=== PATIENT | female | born 1970 | race American Indian/Alaskan Native ===

== ENCOUNTER 2016-09-15 11:34 | Emergency (ER) | payer MEDICARE ==
[2016-09-15] MEDS ORDERED: VALIUM ONE (12:34)
[2016-09-15] MEDS ORDERED: ATIVAN IM PRN (12:38)
[2016-09-15] MEDS ORDERED: VALIUM IM ONE (12:38)
[2016-09-15 12:50] LABS: Basophils % (Auto) 1.2 % (0.0-1.8); Eosinophils % (Auto) 0.9 % (0.0-4.3); Hematocrit 38.4 % (30.3-42.9); Hemoglobin 12.7 gm/dl (10.1-14.3); Mean Corpuscular HGB Conc 33 % (30-34); Mean Corpuscular Hemoglobin 26 pg (28-32); Mean Corpuscular Volume 79 fl (79-97); Platelet Count 329 K/mm3 (140-440); Red Blood Count 4.84 M/mm3 (3.65-5.03); Red Cell Distribution Width 13.9 % (13.2-15.2); White Blood Count 8.3 K/mm3 (4.5-11.0)
[2016-09-15 13:04] LABS: Anion Gap 19 mmol/L; BUN/Creatinine Ratio 15.71; Blood Urea Nitrogen 11 mg/dL (7-17); Calcium 8.7 mg/dL (8.4-10.2); Carbon Dioxide 21 mmol/L (22-30); Chloride 99.9 mmol/L (98-107); Glucose 91 mg/dL (65-100); Potassium 3.4 mmol/L (3.6-5.0); Sodium 136 mmol/L (137-145)
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
[2016-09-15 18:07] LABS: Urine Drugs of Abuse Note Disclamer
[2016-09-15 18:59] LABS: Bilirubin,Urine NEG (Negative); Blood,Urine SM (Negative); Ketones,Urine 20 mg/dL (Negative); Leukocyte Esterase,Urine NEG (Negative); Mucus,Urine FEW /HPF; Nitrite,Urine NEG (Negative); Protein,Urine <15 mg/dL mg/dL (Negative)
[2016-09-16 11:10] VITALS: BP 132/78
== END 2016-09-16 11:12 ==
LOC: EEVIPCON 11:34 → ED 11:34
DX: F14.10 Cocaine abuse, uncomplicated (principal); F39 Unspecified mood [affective] disorder; I10 Essential (primary) hypertension; J45.909 Unspecified asthma, uncomplicated
CPT/HCPCS: 36415; 80048; 80307; 81001; 81025; 82550; 84702; 85025; 96372; 99285; G0480; J3360; 80320

== ENCOUNTER 2016-09-28 17:16 | Outpatient (CLI) | payer MEDICARE ==
--- NOTE | 2016-09-29 09:17 | XRay Report ---
RIGHT KNEE RADIOGRAPHS INDICATION: Right knee pain. COMPARISON: 03/20/2014. FINDINGS: AP and lateral right knee radiographs again partially image distal femoral medullary russel without evidence of loosening. Normal knee articulation. Small calcifications, approximately 1.2 cm in length along proximal MCL are slightly more prominent inferiorly. Small superior patellar enthesophyte. No suprapatellar effusion. CONCLUSION: No acute right knee radiographic abnormality with femoral medullary russel and Pelligrini Steida lesion again noted, as described. Please correlate. Thank you for the opportunity to participate in this patient's care.
== END 2016-09-28 17:17 | disposition home or self-care (01) ==
LOC: MRI 17:16 → XRAY 17:17
PROVIDERS: ATTEND Emergency Medicine
DX: M17.11 Unilateral primary osteoarthritis, right knee (principal); M25.861 Other specified joint disorders, right knee; M47.897 Other spondylosis, lumbosacral region; Z79.899 Other long term (current) drug therapy

== ENCOUNTER 2016-10-31 12:44 | Emergency (ER) | payer MEDICARE ==
[2016-10-31 13:13] VITALS: BP 130/89
--- NOTE | 2016-10-31 13:57 | XRay Report ---
Left knee 3 views: History: Knee pain after fall. Findings: The intramedullary russel at the femur is stable. Articular surfaces appears unremarkable. No fracture, dislocation or joint effusion. Calcification noted in the medial collateral ligament adjacent to the femur. Impression: No evidence of acute fracture.
[2016-10-31] MEDS ORDERED: BOOSTRIX IM ONE (15:18)
[2016-10-31] MEDS ORDERED: TYLENOL PO ONE (15:18)
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
[2016-10-31 15:39] LABS: Bilirubin,Urine NEG (Negative); Blood,Urine NEG (Negative); Ketones,Urine NEG (Negative); Leukocyte Esterase,Urine NEG (Negative); Mucus,Urine FEW /HPF; Nitrite,Urine NEG (Negative); Protein,Urine <15 mg/dL mg/dL (Negative); Urobilinogen,Urine < 2.0 mg/dL (<2.0)
== END 2016-10-31 16:26 | disposition home or self-care (01) ==
LOC: ED 12:44
DX: S80.02XA Contusion of left knee, initial encounter (principal); N76.0 Acute vaginitis; I10 Essential (primary) hypertension; J45.909 Unspecified asthma, uncomplicated; Z98.51 Tubal ligation status; Z90.89 Acquired absence of other organs; Z88.8 Allergy status to other drugs, medicaments and biological substances; W01.0XXA Fall on same level from slipping, tripping and stumbling without subsequent striking against object, initial encounter; Y93.89 Activity, other specified; Y99.8 Other external cause status; Y92.89 Other specified places as the place of occurrence of the external cause
CPT/HCPCS: 81001; 81025; 87086; 87210; 87591; 90471; 90715; 99284

== ENCOUNTER 2016-12-14 18:12 | Outpatient (CLI) | payer MEDICARE ==
--- NOTE | 2016-12-15 08:51 | Magnetic Resonance Report ---
MRI scan of lumbar spine: History: Low back pain. Technique: Multiplanar, multisequence images were obtained without contrast injection. Findings: Conus medullaris terminates at L1 with normal signal intensity. Normal lumbar lordosis. Normal. Paravertebral soft tissue. Normal height and signal intensity of vertebral bodies. Decrease in signal intensity and height of L1-L2, L4-L5 and L5-S1. Below this level is considered L5-S1. L1-L2. No neuroforamina or central canal spinal stenosis. Degenerative facet joints. Degenerative disc. L2-L3. Normal. L3-L4. Mild bilateral neuroforaminal narrowing secondary to diffuse disc bulge. Degenerative facet joints. No central canal spinal stenosis. L4-L5. Severe bilateral neural foramina narrowing and mild central canal spinal stenosis secondary to degenerative diffuse disc bulge and degenerative facet joints with mild ligamenta flava hypertrophy. L5-S1. Severe bilateral neural foramina narrowing secondary to degenerative diffuse disc bulge and degenerative facet joints. No central canal spinal stenosis. No focal protrusion, extrusion or sequestration of disc. Impression: Multilevel bilateral neural foramina narrowing. Central canal spinal stenosis L4-L5. Degenerative facet joints and degenerative disc.
== END 2016-12-14 18:13 | disposition home or self-care (01) ==
LOC: MRI 18:12
PROVIDERS: ATTEND Emergency Medicine
DX: M48.06 Spinal stenosis, lumbar region (principal); M17.11 Unilateral primary osteoarthritis, right knee; M47.897 Other spondylosis, lumbosacral region; M51.36 Other intervertebral disc degeneration, lumbar region; M40.46 Postural lordosis, lumbar region; M24.28 Disorder of ligament, vertebrae; I10 Essential (primary) hypertension; J45.909 Unspecified asthma, uncomplicated; Z79.899 Other long term (current) drug therapy
CPT/HCPCS: 72148

== ENCOUNTER 2017-02-16 09:56 | Emergency (ER) | payer MEDICARE ==
[2017-02-16 10:40] LABS: Anion Gap 15 mmol/L; BUN/Creatinine Ratio 7.14; Blood Urea Nitrogen 5 mg/dL (7-17); Calcium 8.4 mg/dL (8.4-10.2); Carbon Dioxide 26 mmol/L (22-30); Chloride 106.5 mmol/L (98-107); Glucose 92 mg/dL (65-100); Potassium 4.3 mmol/L (3.6-5.0); Sodium 143 mmol/L (137-145)
[2017-02-16 10:41] LABS: Basophils % (Auto) 1.1 % (0.0-1.8); Eosinophils % (Auto) 1.6 % (0.0-4.3); Hematocrit 36.6 % (30.3-42.9); Hemoglobin 11.7 gm/dl (10.1-14.3); Mean Corpuscular HGB Conc 32 % (30-34); Mean Corpuscular Volume 79 fl (79-97); Platelet Count 296 K/mm3 (140-440); Red Blood Count 4.62 M/mm3 (3.65-5.03); Red Cell Distribution Width 15.4 % (13.2-15.2); White Blood Count 8.1 K/mm3 (4.5-11.0)
[2017-02-16 10:46] LABS: Mean Corpuscular Hemoglobin 25 pg (28-32)
--- NOTE | 2017-02-16 11:01 | XRay Report ---
CHEST 2 VIEWS INDICATION: Shortness of breath. COMPARISON: None similar. FINDINGS: PA and lateral chest radiographs suggest slight cardiomegaly. Normal mediastinal and hilar contours. Clear lungs. Intact bones. CONCLUSION: Slight cardiomegaly. Thank you for the opportunity to participate in this patient's care.
[2017-02-16] MEDS ORDERED: PEPCID IV ONE (12:36)
[2017-02-16] MEDS ORDERED: MORPHINE IV ONE (12:36)
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
[2017-02-16] MEDS ORDERED: MORPHINE ONE (13:28)
[2017-02-16 16:09] VITALS: BP 130/88
== END 2017-02-16 16:18 | disposition home or self-care (01) ==
LOC: ED 09:56
DX: T78.3XXA Angioneurotic edema, initial encounter (principal); I10 Essential (primary) hypertension; T78.40XA Allergy, unspecified, initial encounter; F20.0 Paranoid schizophrenia; F31.9 Bipolar disorder, unspecified; F41.9 Anxiety disorder, unspecified; J45.909 Unspecified asthma, uncomplicated; F12.10 Cannabis abuse, uncomplicated
CPT/HCPCS: 36415; 71020; 80048; 84484; 85025; 93005; 93010; 96374; 96375; 99284; J2270; J2930

== ENCOUNTER 2017-03-26 21:33 | Emergency (ER) | payer MEDICARE ==
[2017-03-26 23:17] LABS: Basophils % (Auto) 0.9 % (0.0-1.8); Eosinophils % (Auto) 1.3 % (0.0-4.3); Hematocrit 40.3 % (30.3-42.9); Hemoglobin 12.9 gm/dl (10.1-14.3); Mean Corpuscular HGB Conc 32 % (30-34); Mean Corpuscular Volume 79 fl (79-97); Platelet Count 333 K/mm3 (140-440); Red Blood Count 5.13 M/mm3 (3.65-5.03); Red Cell Distribution Width 15.8 % (13.2-15.2); White Blood Count 8.5 K/mm3 (4.5-11.0)
[2017-03-26 23:20] LABS: Mean Corpuscular Hemoglobin 25 pg (28-32)
[2017-03-26 23:39] LABS: Alanine Aminotransferase 30 units/L (7-56); Albumin/Globulin Ratio 1.3 %; Alkaline Phosphatase 52 units/L (35-129); Anion Gap 19 mmol/L; BUN/Creatinine Ratio 14; Blood Urea Nitrogen 10 mg/dL (7-17); Calcium 9.2 mg/dL (8.4-10.2); Carbon Dioxide 24 mmol/L (22-30); Chloride 101.6 mmol/L (98-107); Glucose 102 mg/dL (65-100); Lipase 47 units/L (13-60); Potassium 3.4 mmol/L (3.6-5.0); Sodium 141 mmol/L (137-145)
[2017-03-27 00:17] LABS: Urine Drugs of Abuse Note Disclamer
[2017-03-27 00:49] LABS: Bilirubin,Urine SM (Negative); Blood,Urine SM (Negative); Ketones,Urine 20 mg/dL (Negative); Leukocyte Esterase,Urine TR (Negative); Mucus,Urine 3+ /HPF; Nitrite,Urine NEG (Negative)
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
[2017-03-27] MEDS: K-DUR PO ONE (14:10)
[2017-03-27] MEDS: MACROBID PO SCH (14:10)
[2017-03-27 17:54] VITALS: BP 127/71
== END 2017-03-27 18:29 ==
LOC: ED 21:33
DX: R45.851 Suicidal ideations (principal); F19.10 Other psychoactive substance abuse, uncomplicated; I10 Essential (primary) hypertension; J45.909 Unspecified asthma, uncomplicated; Z87.891 Personal history of nicotine dependence; Y08.89XA Assault by other specified means, initial encounter
CPT/HCPCS: 36415; 80053; 80307; 81001; 83690; 84703; 85025; 99284; G0480; 80320

== ENCOUNTER 2017-11-22 13:23 | Emergency (ER) | payer MEDICARE, OTHER ==
[2017-11-22 14:20] LABS: Basophils # (Auto) 0.1 K/mm3 (0.0-0.1); Basophils % (Auto) 0.9 % (0.0-1.8); Eosinophils # (Auto) 0.1 K/mm3 (0.0-0.4); Hematocrit 39.8 % (30.3-42.9); Lymphocytes # (Auto) 3.4 K/mm3 (1.2-5.4); Lymphocytes % (Auto) 40.7 % (13.4-35.0); Mean Corpuscular HGB Conc 33 % (30-34); Mean Corpuscular Hemoglobin 26 pg (28-32); Mean Corpuscular Volume 80 fl (79-97); Monocytes # (Auto) 0.9 K/mm3 (0.0-0.8); Monocytes % (Auto) 10.4 % (0.0-7.3); Platelet Count 319 K/mm3 (140-440); Red Blood Count 4.98 M/mm3 (3.65-5.03); Red Cell Distribution Width 15.1 % (13.2-15.2)
[2017-11-22 14:46] LABS: Alanine Aminotransferase 23 units/L (7-56); Albumin 4.4 g/dL (3.9-5); BUN/Creatinine Ratio 12; Blood Urea Nitrogen 11 mg/dL (7-17); Calcium 9.1 mg/dL (8.4-10.2); Hemolysis Index 3
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
[2017-11-22] MEDS ORDERED: MORPHINE IV ONE (17:58)
[2017-11-22] MEDS ORDERED: VANCOMYCIN PHARMACY TO DOSE IV SCH (18:00)
[2017-11-22] MEDS ORDERED: VANCOMYCIN/NS 1 GM/250 ML 1 GM/250 ML BAG IV SCH (18:00)
[2017-11-22] MEDS ORDERED: VANCOMYCIN 1,500 MG in NACL 0.9% 500 ML 500 ML IV ONE (19:30)
[2017-11-22 19:44] VITALS: BP 117/87
--- NOTE | 2017-11-22 20:53 | XRay Report ---
FINAL REPORT EXAM: XR FOOT 3+V RT HISTORY: foot injury TECHNIQUE: Three views of the right foot PRIORS: None. FINDINGS: There is no evidence of acute fracture. There is osteoarthrosis of the interphalangeal joint of the great toe with prominent osteophyte formation and cortical irregularity. There is osteoarthrosis of the 1st metatarsophalangeal joint with cortical irregularity and subchondral sclerosis. The bones are normally aligned and mineralized. The soft tissues are unremarkable. IMPRESSION: No evidence of acute fracture or subluxation. 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
[2017-11-23] MEDS ORDERED: VANCOMYCIN 1,250 MG in NACL 0.9% 250ML 250 ML IV SCH (06:00)
== END 2017-11-22 21:00 | disposition home or self-care (01) ==
LOC: ED 13:23
DX: M79.671 Pain in right foot (principal); G89.18 Other acute postprocedural pain; I10 Essential (primary) hypertension; F31.9 Bipolar disorder, unspecified; F20.9 Schizophrenia, unspecified; J45.909 Unspecified asthma, uncomplicated; K58.9 Irritable bowel syndrome, unspecified; Z98.51 Tubal ligation status; Z90.89 Acquired absence of other organs
CPT/HCPCS: 36415; 73630; 80053; 85025; 96365; 96366; 96375; 99284; J2270; J3370; J7040; J7050

== ENCOUNTER 2020-06-04 14:18 | Emergency (ER) | payer MEDICARE ==
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
[2020-06-05 14:24] LABS: Bacteria,Urine 1+ /HPF (Negative); Bilirubin,Urine NEG (Negative); Blood,Urine NEG (Negative); Color,Urine Yellow (Yellow); Mucus,Urine 3+ /HPF
[2020-06-05 14:27] LABS: Amphetamine Screen,Urine PRESUMPTIVE NEGATIVE; Benzodiazepines Screen,Urine PRESUMPTIVE NEGATIVE; Cannabinoid Screen,Urine PRESUMPTIVE POSITIVE; Cocaine Screen,Urine PRESUMPTIVE POSITIVE; Methadone Screen,Urine PRESUMPTIVE NEGATIVE; Opiate Screen,Urine PRESUMPTIVE NEGATIVE
[2020-06-05 15:43] LABS: Basophils % (Auto) 0.6 % (0.0-1.8); Eosinophils # (Auto) 0.1 K/mm3 (0.0-0.4); Eosinophils % (Auto) 1.7 % (0.0-4.3); Hematocrit 37.4 % (30.3-42.9); Hemoglobin 12.2 gm/dl (10.1-14.3); Lymphocytes # (Auto) 3.2 K/mm3 (1.2-5.4); Lymphocytes % (Auto) 50.9 % (13.4-35.0); Mean Corpuscular HGB Conc 33 % (30-34); Mean Corpuscular Volume 79 fl (79-97); Monocytes # (Auto) 0.7 K/mm3 (0.0-0.8); Monocytes % (Auto) 10.5 % (0.0-7.3); Platelet Count 325 K/mm3 (140-440); Red Blood Count 4.74 M/mm3 (3.65-5.03); Red Cell Distribution Width 17.5 % (13.2-15.2)
[2020-06-05 15:56] LABS: Blood Urea Nitrogen 8 mg/dL (7-17); Calcium 8.8 mg/dL (8.4-10.2); Hemolysis Index 5
[2020-06-05 16:05] LABS: BUN/Creatinine Ratio 11
[2020-06-06 02:36] VITALS: BP 121/88
== END 2020-06-06 08:39 ==
LOC: ED 14:18
DX: R45.851 Suicidal ideations (principal); F14.90 Cocaine use, unspecified, uncomplicated; I10 Essential (primary) hypertension; F41.9 Anxiety disorder, unspecified; J45.909 Unspecified asthma, uncomplicated; Z90.89 Acquired absence of other organs; Z98.890 Other specified postprocedural states; Z79.899 Other long term (current) drug therapy; Z88.8 Allergy status to other drugs, medicaments and biological substances
CPT/HCPCS: 36415; 80048; 80178; 80307; 80320; 81001; 85025; G0480